=== PATIENT | female | born 1955 | race Caucasian/White ===

== ENCOUNTER → 2017-02-26 | Emergency (ER) | payer SELFPAY ==
[~2017-02-26] VITALS: Ht 162.6 cm; Wt 63.5 kg
[~2017-02-26] MED LIST: ZOLOFT50 MG PO
--- NOTE | 2017-02-26 19:27 | EKG ---
[facility] [address] [facility] [place] [address] Signed Normal sinus rhythm Normal ECG No previous ECGs available Confirmed by MANFRED DOBBINS MD ([id number]) on 02/26/2017 7:26:44 PM Electronically Signed By: MANFRED DOBBINS MD 02/26/171926 PATIENT NAME: NADER CID Electrocardiogram DATE OF : 53 PHYSICIAN: MANFRED DOBBINS MD REPORT #: [id number] REPORT IS CONFIDENTIAL AND NOT TO BE RELEASED WITHOUT AUTHORIZATION
== END | disposition home or self-care (01) ==
LOC: ED 10:04
DX: R07.2 Precordial pain (principal); Z98.51 Tubal ligation status; Z98.890 Other specified postprocedural states; Z88.8 Allergy status to other drugs, medicaments and biological substances; Z79.899 Other long term (current) drug therapy
CPT/HCPCS: 71020; 80053; 84484; 85025; 93005; 93010; 99284

== ENCOUNTER 2020-11-11 07:15 | Day surgery (SDC) | payer MEDICARE ==
[~2020-11-11] VITALS: Ht 162.6 cm; Wt 62.7 kg
--- NOTE | 2020-11-11 09:22 | NUR ---
11/11/20 0922 Harper Stauffer 0915 PT ARRIVED TO PACU ON 2L VIA MASK, 2L NC IN PLACE AND RESP EVEN AND UNLABORED. 0917 PT WAKES TO TACTILE STIMULI AND IS REORIENTED TO PACU AND EASILY FALLS BACK TO SLEEP. VSS.
--- NOTE | 2020-11-12 06:18 | OR ---
[facility] [address] [place], [place] [address] Signed DATE OF OPERATION: 11/11/2020 SURGEON: Josse Santiago MD PREOPERATIVE DIAGNOSES: 1. Brother with colonic polyps in his late 50s or early 60s. 2. Unremarkable colonoscopy in 2009. POSTOPERATIVE DIAGNOSES: 1. Minimal to moderate internal hemorrhoids and skin tags. 2. Long redundant left colon. PROCEDURE: Colonoscopy without biopsy. ESTIMATED BLOOD LOSS: None. INDICATIONS: Nader is a 65-year-old female who came for a followup colonoscopy. Recently, her brother had colonic polyp removed. He has somewhere in his late 50s or early 60s. However, he lives down in [place]. Nader herself had a negative colonoscopy in 2009 in [place]. Currently, she has no lower GI complaints. I gave her a pamphlet in the office on colonoscopy. We looked at that together along with the risks including, but not limited to gas bloating, crampy abdominal pain, bleeding, perforation requiring surgery, and missed diagnosis. She also recalls the need for IV conscious sedation. She had expressed understanding and wished to proceed. PROCEDURE NOTE: Nader was taken into endoscopy suite and placed in the left lateral decubitus position. She was given a total of 5 mg of Versed and 100 mcg of fentanyl. A digital rectal exam was performed and this was unremarkable. The adult colonoscope was introduced and advanced under direct visualization of the camera. She has a long redundant sigmoid and left colon. It took some extra sedation abdominal compression in order to advance the scope. We eventually had to move her into the supine position, but that did not help. We went back to the left lateral decubitus position and had withdrawn the scope several times and finally the scope passed nicely into the cecum itself with mild abdominal compression. Her prep was quite good. We could easily see the appendiceal orifice and the ileocecal valve. We had taken pictures throughout for photodocumentation. We found no pathology throughout the entire colon or rectum. Upon retroflexion of scope, she has Electronically Signed By: JOSSE SANTIAGO MD 11/12/20 0618 PATIENT NAME: NADER CID OPERATIVE REPORT DATE OF : 53 REPORT #: [id number] PHYSICIAN: JOSSE SANTIAGO MD PCP: JOSÉ MIGUEL CARDONA MD REPORT IS CONFIDENTIAL AND NOT TO BE RELEASED WITHOUT AUTHORIZATION [facility] [address] [place], [place] [address] Signed small to moderate sized internal hemorrhoid columns with associated skin tags. After this, the gas was suctioned out and colonoscope removed. Nader tolerated the procedure quite well. RECOMMENDATIONS: Nader can follow up in 10 years if her brother had a hyperplastic polyp. If he had adenomatous polyp, she would need to come every 5 years. Josse Santiago MD ALB/HALL /[id number] cc: MD Josse Munoz MD Copies: JOSÉ MIGUEL CARDONA DMD, ANDREW L MD ~ Electronically Signed By: JOSSE SANTIAGO MD 11/12/20 0618 PATIENT NAME: NDAER CID OPERATIVE REPORT DATE OF : 53 REPORT #: [id number] PHYSICIAN: JOSSE SANTIAGO MD PCP: JOSÉ MIGUEL CARDONA MD REPORT IS CONFIDENTIAL AND NOT TO BE RELEASED WITHOUT AUTHORIZATION
== END 2020-11-11 10:10 | disposition home or self-care (01) ==
LOC: DS 07:15 → OPS 07:15 → DS 08:15 → OPS 08:15
PROVIDERS: ATTEND Colon & Rectal Surgery
PROC: 0DJD8ZZ Inspection of Lower Intestinal Tract, Via Natural or Artificial Opening Endoscopic (ICD-10-PCS; principal; 2020-11-11 08:15)
DX: K64.8 Other hemorrhoids (principal); K64.4 Residual hemorrhoidal skin tags; M19.90 Unspecified osteoarthritis, unspecified site; F41.9 Anxiety disorder, unspecified; H81.10 Benign paroxysmal vertigo, unspecified ear; E78.5 Hyperlipidemia, unspecified; Z83.71 Family history of colonic polyps
CPT/HCPCS: 99153; G0500; J2250; J3010; J7121

== ENCOUNTER 2021-09-17 10:45 | Emergency (ER) | payer MEDICARE ==
[~2021-09-17] VITALS: Ht 162.6 cm; Wt 56.7 kg
[2021-09-17] MEDS ORDERED: AMOXICILLIN500 MG PO (10:58)
[2021-09-17] MEDS ORDERED: DEXAMETHASONE2 MG PO (10:59)
--- NOTE | 2021-09-18 15:17 | EKG ---
[facility] [address] [facility] [place], [place] [address] Signed Sinus rhythm with sinus arrhythmia with occasional premature ventricular complexes Otherwise normal ECG Confirmed by MANFRED DOBBINS MD ([id number]) on 09/18/2021 3:17:17 PM Electronically Signed By: MANFRED DOBBINS MD 09/18/21 1517 PATIENT NAME: NADER CID Electrocardiogram DATE OF : 53 PHYSICIAN: MANFRED DOBBINS MD REPORT #: [id number] REPORT IS CONFIDENTIAL AND NOT TO BE RELEASED WITHOUT AUTHORIZATION
== END 2021-09-17 14:18 | disposition home or self-care (01) ==
LOC: ED 10:45
DX: R07.9 Chest pain, unspecified (principal); Z88.5 Allergy status to narcotic agent; Z88.8 Allergy status to other drugs, medicaments and biological substances; Z79.899 Other long term (current) drug therapy
CPT/HCPCS: 36415; 71045; 80053; 83735; 84484; 85025; 93005; 93010; 99285-25

== ENCOUNTER 2024-10-01 13:46 | Emergency (ER) | payer MEDICARE ==
[~2024-10-01] VITALS: Ht 162.6 cm; Wt 61.5 kg
[~2024-10-01 13:46] MED LIST changes: +AMOXICILLIN500 MG PO; +DEXAMETHASONE2 MG PO
[2024-10-01] MEDS ORDERED: FAMOTIDINE20 MG (14:07)
[2024-10-01] MEDS ORDERED: ACETAMINOPHEN 500 MG TAB PO ONE (14:15)
[2024-10-01 15:12] VITALS: BP 138/74
== END 2024-10-01 15:12 | disposition home or self-care (01) ==
LOC: ED 13:46
DX: S52.592A Other fractures of lower end of left radius, initial encounter for closed fracture (principal); S00.11XA Contusion of right eyelid and periocular area, initial encounter; S70.01XA Contusion of right hip, initial encounter; Z88.5 Allergy status to narcotic agent; Z88.8 Allergy status to other drugs, medicaments and biological substances; W18.30XA Fall on same level, unspecified, initial encounter
CPT/HCPCS: 29125; 73090; 99283; A9270

== ENCOUNTER 2025-02-22 10:33 | Emergency (ER) | payer MEDICARE ==
[~2025-02-22] VITALS: Ht 162.6 cm; Wt 61.8 kg
[~2025-02-22 10:33] MED LIST changes: +FAMOTIDINE20 MG
[2025-02-22] MEDS ORDERED: SERTRALINE HCL50 MG PO (10:54)
[2025-02-22 10:59] LABS: BLOOD/HGB, URINE NEGATIVE (Negative); KETONE, URINE NEGATIVE (Negative); LEUK ESTERASE, URINE SMALL (negative); NITRITE, URINE NEGATIVE (negative)
[2025-02-22 11:04] LABS: BACTERIA, URINE NONE SEEN /hpf (negative); CASTS, URINE NONE SEEN \\lpf; CRYSTALS, URINE NONE SEEN (0-1+); EPITHELIAL CELLS, URINE SQUAMOUS 1+ /lpf (0-1+); REFLEX CULTURE, URINE No (No)
[2025-02-22 11:45] LABS: BASOPHILS 0.8 % (0.1-1.2); EOSINOPHILS 1.1 % (0.7-5.8); LYMPHOCYTES 25.8 % (19.3-51.7); MCH 32.1 PG (25.6-32.2); MCHC 33.6 g/dL (32.2-35.5); MCV 95.5 fL (79.4-94.8); MONOCYTES 8.9 % (4.7-12.5); NEUTROPHILS 63.3 % (34.0-71.1); RBC 4.43 M/uL (3.93-5.22)
[2025-02-22 12:02] LABS: ALT (SGPT) 29.0 U/L (14-59); AST (SGOT) 21.0 U/L (15-37); GLOMERULAR FILTRATION RATE,EST 99.0 mL/min (>60); PROTEIN, TOTAL 6.9 g/dL (6.4-8.2); UREA NITROGEN 10.0 mg/dL (7-18)
[2025-02-22] MEDS ORDERED: MACROBID 100 M100 MG PO (12:54)
[2025-02-22 12:55] VITALS: BP 144/80
== END 2025-02-22 13:01 | disposition home or self-care (01) ==
LOC: ED 10:33
PROVIDERS: Emergency Medicine
DX: N39.0 Urinary tract infection, site not specified (principal); I50.9 Heart failure, unspecified; Z88.5 Allergy status to narcotic agent; Z88.8 Allergy status to other drugs, medicaments and biological substances; Z79.899 Other long term (current) drug therapy
CPT/HCPCS: 36415; 74177; 80053; 81001; 83690; 85025; 87088; 99284-25; Q9967